=== PATIENT | male | born 1960 | race Two or more races ===

== ENCOUNTER 2018-01-12 12:28 | Emergency (ER) | payer OTHER ==
[2018-01-12 13:14] VITALS: BP 141/86
--- NOTE | 2018-01-12 13:32 | UC ---
UC General HPI - HPI Summary HPI Summary: Patient developed a nonblanching rash on both lower extremities about a month ago. Today he now has a similar non-blanching rash on his left forearm , as well, some rash extending up past his knees onto his thighs. - History of Current Complaint Chief Complaint: UCSkin Stated Complaint: RASH Time Seen by Provider: 01/12/18 13:08 Hx Obtained From: Patient Onset/Duration: Gradual Onset, Lasting Weeks - 4, Worse Since - today Timing: Constant Current Severity: None Pain Intensity: 0 - Allergy/Home Medications Allergies/Adverse Reactions: Allergies Allergy/AdvReac Type Severity Reaction Status Date / Time seasonal, grass & weeds Allergy Eyes Uncoded 01/12/18 13:14 Itchy/Swollen/Red/Watery Home Medications: Home Medications Adalimumab [Humira] 1 dose SUBCUT SEE INSTRUCTIONS 01/12/18 [History Confirmed 01/12/18] PMH/Surg Hx/FS Hx/Imm Hx - Additional Past Medical History Additional PMH: Psoriatic arthritis Previously Healthy: No - Surgical History Surgical History: Yes Surgery Procedure, Year, and Place: hernia repair - Family History Known Family History: Positive: None - Social History Occupation: Employed Full-time Lives: With Family Alcohol Use: Rare Substance Use Type: None Smoking Status (MU): Never Smoked Tobacco Review of Systems Constitutional: Negative Skin: Rash Eyes: Negative ENT: Negative Respiratory: Negative Cardiovascular: Negative Gastrointestinal: Negative Genitourinary: Negative Motor: Negative Neurovascular: Negative Musculoskeletal: Negative Neurological: Negative Psychological: Negative Is Patient Immunocompromised?: No All Other Systems Reviewed And Are Negative: Yes Physical Exam Triage Information Reviewed: Yes Appearance: Well-Appearing, No Pain Distress, Well-Nourished Vital Signs: Initial Vital Signs Temp 97.9 F 01/12/18 13:07 Pulse 74 01/12/18 13:07 Resp 14 01/12/18 13:07 BP 141/86 01/12/18 13:07 Pulse Ox 99 01/12/18 13:07 Vital Signs Reviewed: Yes Eye Exam: Normal Eyes: Positive: Conjunctiva Clear ENT Exam: Normal ENT: Positive: Normal ENT inspection, Hearing grossly normal. Negative: Trismus , Muffled voice, Hoarse voice Neck exam: Normal Neck: Positive: Supple, Nontender, No Lymphadenopathy Respiratory Exam: Normal Respiratory: Positive: No respiratory distress, No accessory muscle use Cardiovascular Exam: Normal Cardiovascular: Positive: RRR, Pulses Normal, Brisk Capillary Refill Musculoskeletal Exam: Normal Musculoskeletal: Positive: Strength Intact, ROM Intact, No Edema Neurological Exam: Normal Neurological: Positive: Alert Psychological Exam: Normal Skin: Positive: Other - no blanching macular raSH BOTH LEGS AND LEFT FOREARM Course/Dx - Course Course Of Treatment: Discharge patient from urgent care and have him go directly to the [facility] for further evaluation - Differential Dx - Multi-Symptom Provider Diagnoses: Rash both lower extremities left forearm - Physician Notifications Time Discussed With Above Provider: 13:35 - jessie multani Discharge - Sign-Out/Discharge Documenting (check all that apply): Discharge/Admit/Transfer - Discharge Plan Condition: Stable Disposition: HOME Patient Education Materials: Hypertension (ED) Referrals: Milly Wagner MD [Primary Care Provider] - Additional Instructions: Laboratory discharge from the urgent care or go directly over to the [facility] emergency department. - Billing Disposition and Condition Condition: STABLE Disposition: HOME
== END 2018-01-12 13:39 | disposition home or self-care (01) ==
LOC: UCCORT 12:28
DX: R21 Rash and other nonspecific skin eruption (principal); L40.50 Arthropathic psoriasis, unspecified
CPT/HCPCS: 99212; G0463

== ENCOUNTER 2018-02-15 11:58 | Emergency (ER) | payer OTHER ==
[2018-02-15 13:16] VITALS: BP 136/75
[2018-02-15] MEDS ORDERED: Albuterol HFA INHALER* 8 gm MDI INH ONE (13:45)
[2018-02-15] MEDS ORDERED: predniSONE TAB* 20 MG PO ONE (13:46)
--- NOTE | 2018-02-15 13:50 | UC ---
Respiratory Complaint HPI - HPI Summary HPI Summary: Patient is a 57-year-old male with a one-week history of nasal congestion and postnasal drip. This has progressed to a productive cough with chest tightness and wheezing. The patient has been treated for bronchospasm in the past but denies a diagnosis of asthma. Is having history of pneumonia. His has not been feverish with this. The patient has a history of psoriatic arthritis for which she is taking Humira. He denies any chest pain or shortness of breath. His was recently treated for bronchitis. - History of Current Complaint Chief Complaint: UCRespiratory Stated Complaint: THROAT,CONGESTION Time Seen by Provider: 02/15/18 13:36 Hx Obtained From: Patient Onset/Duration: Gradual Onset, Lasting Days, Worse Since - past few days Timing: Constant Severity Initially: Mild Severity Currently: Moderate Pain Intensity: 3 Pain Scale Used: 0-10 Numeric Character: Cough: Productive Aggravating Factors: Nothing Associated Signs And Symptoms: Positive: Wheezing, Nasal Congestion, Sinus Discomfort - Allergies/Home Medications Allergies/Adverse Reactions: Allergies Allergy/AdvReac Type Severity Reaction Status Date / Time No Known Allergies Allergy Verified 02/15/18 13:17 Home Medications: Home Medications Acetaminophen [APAP] 325 mg PO ONCE PRN 02/15/18 [History Confirmed 02/15/18] Guaifenesin/Dextromethorphan [Mucinex Dm Maximum Streng 60-1200 mg] 2 tab PO DAILY PRN 02/15/18 [History Confirmed 02/15/18] PMH/Surg Hx/FS Hx/Imm Hx Previously Healthy: Yes - psoriatic arthritis Respiratory History: Bronchitis, Pneumonia - Surgical History Surgical History: Yes Surgery Procedure, Year, and Place: hernia repair - Family History Known Family History: Positive: Hypertension - Social History Alcohol Use: Rare Substance Use Type: None Smoking Status (MU): Never Smoked Tobacco Review of Systems Constitutional: Negative Skin: Negative Eyes: Negative ENT: Nasal Discharge, Sinus Congestion, Sinus Pain/Tenderness Respiratory: Cough Cardiovascular: Negative Gastrointestinal: Negative Genitourinary: Negative Motor: Negative Neurovascular: Negative Musculoskeletal: Negative Neurological: Negative Psychological: Negative Is Patient Immunocompromised?: No All Other Systems Reviewed And Are Negative: Yes Physical Exam Triage Information Reviewed: Yes Appearance: Well-Appearing, No Pain Distress, Well-Nourished Vital Signs: Initial Vital Signs Temp 98.2 F 02/15/18 13:09 Pulse 62 06/30/18 13:09 Resp 16 02/15/18 13:09 BP 136/75 02/15/18 13:09 Pulse Ox 100 02/15/18 13:09 Vital Signs Reviewed: Yes Eyes: Positive: Conjunctiva Clear ENT: Positive: Hearing grossly normal, Nasal congestion, TMs normal, Sinus tenderness - very slight, Uvula midline. Negative: Nasal drainage, Tonsillar swelling, Tonsillar exudate, Trismus, Muffled voice, Hoarse voice, Dental tenderness Neck: Positive: Supple, Nontender, No Lymphadenopathy Respiratory: Positive: Normal breath sounds, No respiratory distress, No accessory muscle use, Wheezing - with forced expiration Cardiovascular: Positive: RRR, No Murmur Musculoskeletal: Positive: ROM Intact, No Edema Neurological: Positive: Alert Psychological Exam: Normal Skin Exam: Normal UC Diagnostic Evaluation - Laboratory O2 Sat by Pulse Oximetry: 100 - normal/not hypoxic Respiratory Course/Dx - Differential Dx/Diagnosis Provider Diagnoses: acute bronchitis with bronchospam. allergic rhinitis Discharge - Sign-Out/Discharge Documenting (check all that apply): Discharge/Admit/Transfer - Discharge Plan Condition: Stable Disposition: HOME Prescriptions: Amoxicillin PO (*) [Amoxicillin 875 MG (*)] 875 mg PO BID #20 tab Fluticasone NASAL SPRAY 50MCG* [Flonase NASAL SPRAY 50MCG*] 2 spray BOTH NARES BID #1 btl predniSONE [Deltasone 20 MG TAB] 40 mg PO DAILY #8 tab Patient Education Materials: Acute Bronchitis (ED) Referrals: Milly Wagner MD [Primary Care Provider] - 3 Days (if not better) Additional Instructions: use inhaler as directed recheck for new or worsening symptoms - Billing Disposition and Condition Condition: STABLE Disposition: Home
== END 2018-02-15 14:13 | disposition home or self-care (01) ==
LOC: UCCORT 11:58
DX: J20.9 Acute bronchitis, unspecified (principal); J30.9 Allergic rhinitis, unspecified
CPT/HCPCS: 99212; A9270-GY; G0463; J7512

== ENCOUNTER 2018-02-19 08:13 | Emergency (ER) | payer OTHER ==
[2018-02-19 08:38] VITALS: BP 123/82
--- NOTE | 2018-02-19 09:19 | UC ---
Throat Pain/Nasal Edward HPI - HPI Summary HPI Summary: Currently being treated with amoxicillin for bronchitis, along with deltasone and flonase. Has had a small abraded area of skin lateral to the nose on the left cheek for a week. For the past 5 days has had increasing swelling of the nose, with erythema and tenderness. Increased infraorbital swelling of the right eye, without pain with eye movements, diplopia. Has a mild headache. Last took Humira 2 weeks ago --on hold due to infection. - History of Current Complaint Chief Complaint: UCRespiratory Stated Complaint: NOSE SWELLING/PUFFY EYES Time Seen by Provider: 02/19/18 09:07 Hx Obtained From: Patient Onset/Duration: Gradual Onset, Lasting Days Severity: Moderate Pain Intensity: 2 Cough: Nonproductive Associated Signs & Symptoms: Positive: Other - mild nasal congestion, no bleeding or discharge. - Epiglottits Risk Factors Epiglottis Risk Factors: Negative - Allergies/Home Medications Allergies/Adverse Reactions: Allergies Allergy/AdvReac Type Severity Reaction Status Date / Time No Known Allergies Allergy Verified 02/19/18 08:38 PMH/Surg Hx/FS Hx/Imm Hx - Additional Past Medical History Additional PMH: psoriasis, on Humira. Previously Healthy: Yes - Surgical History Surgical History: Yes Surgery Procedure, Year, and Place: hernia repair - Family History Known Family History: Positive: Cardiac Disease - mother, Hypertension, Other - father has CA prostate - Social History Occupation: Employed Full-time - design engineering manager Lives: With Family Alcohol Use: Rare Substance Use Type: None Smoking Status (MU): Never Smoked Tobacco Review of Systems Eyes: Other - infraorbital swelling only Respiratory: Cough - has improved since beginning use of amoxicillin and steroid Is Patient Immunocompromised?: Yes - takes Humira, assume some immune suppression All Other Systems Reviewed And Are Negative: Yes Physical Exam Triage Information Reviewed: Yes Appearance: Well-Appearing - alert, visible nose swelling, but otherwise looks well, Pain Distress - mild Vital Signs: Initial Vital Signs Temp 98.1 F 02/19/18 08:30 Pulse 74 02/19/18 08:30 Resp 18 02/19/18 08:30 BP 123/82 02/19/18 08:30 Pulse Ox 100 02/19/18 08:30 Eye Exam: Other - normal eom, AMNOJ without photophobia. Eyes: Positive: Conjunctiva Clear ENT Exam: Other - swelling of nose to the right side with mild induration, erythema and tenderness, about 6 cm area. Irregular 1 cm abrasion medial left cheek. No discharge, light crust. Nasal passages boggy, but no visible drainage or abscess. ENT: Positive: Pharynx normal, TMs normal, Other - no swelling of the philtrum Dental Exam: Normal Neck exam: Normal Respiratory: Positive: Lungs clear, Normal breath sounds Cardiovascular: Positive: RRR, No Murmur Musculoskeletal Exam: Normal Neurological: Positive: Alert, Muscle Tone Normal Skin Exam: Other - erythema and induration of the nose as above Throat Pain/Nasal Course/Dx - Course Course Of Treatment: cephalexin for cellulitis with close monitoring; to ER if progresses. - Differential Dx/Diagnosis Differential Diagnosis/HQI/PQRI: Other - cellulitis, lindsay-orbital cellulitis Provider Diagnoses: cellulitis nose. Discharge - Sign-Out/Discharge Documenting (check all that apply): Discharge/Admit/Transfer - Discharge Plan Condition: Stable Disposition: HOME Prescriptions: Cephalexin CAP* [Keflex 500 CAP*] 500 mg PO QID #28 cap Patient Education Materials: Cellulitis (ED) Referrals: Milly Wagner MD [Primary Care Provider] - Additional Instructions: Begin use of cephalexin 500mg 4 times per day for 7 days. If you have significant increase in swelling around the eyes, pain with eye movement, increasing fever or pain, please proceed to the emergency room as you might need iv antibiotics. STOP amoxicillin. Complete steroid course. Use tylenol or ibuprofen as needed for pain. - Billing Disposition and Condition Condition: STABLE Disposition: Home
== END 2018-02-19 09:44 | disposition home or self-care (01) ==
LOC: UCCORT 08:13
DX: J34.0 Abscess, furuncle and carbuncle of nose (principal); Z79.2 Long term (current) use of antibiotics; L40.9 Psoriasis, unspecified
CPT/HCPCS: 99212; G0463

== ENCOUNTER 2018-05-19 17:00 | Emergency (ER) | payer OTHER ==
--- OUTSIDE RECORDS SUMMARY | 2018-05-19 19:00 | XMS REPORT ---
:1960 External Reference #:[id number] Author Organization [facility] Address [address], [address] [place] [address] Phone [phone] Care Team Providers Name Role Phone Milly Wagner MD Care Team Information Studio Data Analyst Unavailable Milly Wagner MD Primary Care Physician Unavailable Payers Type Date Identification Numbers Payment Provider Subscriber Commercial Policy Number: [id number] [facility] Abhay Flores Group Number: [id number] [address] [address] PayID: [id number] [place] [address] Problems Description No Information Family History Date Family Member(s) Problem(s) Comments Father CAD Father Prostate Cancer Father Oral Cancer First Sister Breast Cancer Social History Type Date Description Comments Marital Status Lives With Family Occupation Currently Working Cigarette Use Never Smoked Cigarettes ETOH Use Occasionally consumes alcohol Smoking Patient has never smoked Recreational Drug Use Never Used Drugs Daily Caffeine Consumes on average 2 cups of regular coffee per day Exercise Type/Frequency Exercises regularly Allergies, Adverse Reactions, Alerts Date Description Reaction Status Severity Comments 09/11/2017 NKDA active Medications Medication Date Status Form Strength Qnty SIG Indications Ordering Provider Humira Active PSKT 40mg/0.8ML 1 injection Unknown 000 every 2 weeks Methotrexate Active Tablets 2.5mg 4 tabs by Unknown 000 mouth every week No Active Hx Unknown Medications 018 Vital Signs Date Vital Result Comment 05/14/2018 BP Systolic Sitting Right Arm 134 mmHg BP Diastolic Sitting Right Arm 72 mmHg Heart Rate 60 /min Respiratory Rate 16 /min Height 72 inches 6'0" Weight 199.00 lb BMI (Body Mass Index) 27.0 kg/m2 BSA (Body Surface Area) 2.13 m2 Lutz body weight in kilograms 81 O2 % BldC Oximetry 99 % Room air 11/11/2017 BP Systolic Sitting Right Arm 138 mmHg BP Diastolic Sitting Right Arm 80 mmHg Heart Rate 75 /min Respiratory Rate 18 /min Height 72 inches 6'0" Weight 200.00 lb BMI (Body Mass Index) 27.1 kg/m2 BSA (Body Surface Area) 2.13 m2 Lutz body weight in kilograms 81 O2 % BldC Oximetry 97 % room air 09/11/2017 BP Systolic Sitting Left Arm 130 mmHg BP Diastolic Sitting Left Arm 74 mmHg Heart Rate 73 /min Respiratory Rate 14 /min Weight 204.00 lb O2 % BldC Oximetry 98 % Results Test Date Test Result H/L Range Note Aot Request 06/12/2017 Aot Request (SEE NOTE) 1, 2 Tests to be added: Pls work up Yeas <SEE NOTE> 1, 3 Instructions: From sputum Cult <SEE NOTE> 1, 4 Continuous Oximetry 06/12/2017 Oximetry 96 % 93-98 1 Fio2 21 21-100 1 O2l/Min 0 L/min 1 Heart Rate 99 BPM 1 Patient Status AMBULATING 1 Continuous Oximetry 06/12/2017 Oximetry 98 % 93-98 1 Fio2 21 21-100 1 O2l/Min 0 L/min 1 Heart Rate 97 BPM 1 Patient Status RESTING 1 Patient Position SITTING UP IN BE <SEE NOTE> 1, 5 CBS W/Automated Diff 06/11/2017 White Blood Count 5.7 K/uL 3.4-10.5 1 Red Blood Count 3.67 M/uL Low 4.20-5.80 1 Hemoglobin 11.7 gm/dL Low 12.8-17.0 1 Hematocrit 33.8 % Low 38.0-48.0 1 Mean Cell Volume 92.1 fl 80.0-96.0 1 Mean Corpuscular HGB 31.9 pg 27.0-33.0 1 Mean Corpuscular HGB Conc 34.6 g/dL 31.7-36.0 1 Platelet Count 188 K/uL 150-400 1 Red Cell Distri Width SD 45.8 fl 36-51 1 Red Cell Distri Width %CV 14.1 % 11.6-15.8 1 Mean Platelet Volume 12.3 fL High 6.6-10.6 1 Neut% 61.1 % 33.0-73.0 1 Lymph % 31.5 % 20.0-42.0 1 Bladen % 4.9 % 0.0-10.0 1 Eo% 2.1 % 0.0-6.6 1 Bas% 0.4 % 0.0-1.1 1 Neut# 3.47 K/uL 1.8-7.0 1 Lymph # 1.79 K/uL 1.0-4.0 1 Bladen # 0.28 K/uL 0.0-0.8 1 Eos # 0.12 K/uL 0.0-0.5 1 Baso # 0.02 K/uL 0.0-0.1 1 CBS W/Automated Diff 06/10/2017 White Blood Count 5.6 K/uL 3.4-10.5 1 Red Blood Count 3.44 M/uL Low 4.20-5.80 1 Hemoglobin 11.0 gm/dL Low 12.8-17.0 1 Hematocrit 31.3 % Low 38.0-48.0 1 Mean Cell Volume 91.0 fl 80.0-96.0 1 Mean Corpuscular HGB 32.0 pg 27.0-33.0 1 Mean Corpuscular HGB Conc 35.1 g/dL 31.7-36.0 1 Platelet Count 158 K/uL 150-400 1 Red Cell Distri Width SD 44.0 fl 36-51 1 Red Cell Distri Width %CV 13.9 % 11.6-15.8 1 Mean Platelet Volume 10.1 fL 6.6-10.6 1 Neut% 71.0 % 33.0-73.0 1 Lymph % 20.4 % 20.0-42.0 1 Bladen % 6.8 % 0.0-10.0 1 Eo% 1.6 % 0.0-6.6 1 Bas% 0.2 % 0.0-1.1 1 Neut# 3.98 K/uL 1.8-7.0 1 Lymph # 1.14 K/uL 1.0-4.0 1 Bladen # 0.38 K/uL 0.0-0.8 1 Eos # 0.09 K/uL 0.0-0.5 1 Baso # 0.01 K/uL 0.0-0.1 1 Laboratory test finding 06/09/2017 Troponin-I < 0.015 ng/mL 1, 6 Basic Metabolic Panel 06/09/2017 Glucose 109 mg/dL High 74-106 1 BUN 14 mg/dL 7-18 1 Creatinine 1.0 mg/dL 0.6-1.3 1 Glom Filtration Rate, Estimate >60 mL/min >60 1 If >60 mL/min >60 1, 7 BUN/Creat 14.0 ratio 1 Sodium 140 mmol/L 136-145 1 Potassium 3.6 mmol/L 3.5-5.1 1 Chloride 110 mmol/L High 98-107 1 Carbon Dioxide 22 mmol/L 21-32 1 Anion Gap 8 mEq/L 8-16 1 Calcium 8.2 mg/dL Low 8.5-10.1 1 CBS W/Automated Diff 06/09/2017 White Blood Count 7.8 K/uL 3.4-10.5 1 Red Blood Count 3.59 M/uL Low 4.20-5.80 1 Hemoglobin 11.3 gm/dL Low 12.8-17.0 1 Hematocrit 33.1 % Low 38.0-48.0 1 Mean Cell Volume 92.2 fl 80.0-96.0 1 Mean Corpuscular HGB 31.5 pg 27.0-33.0 1 Mean Corpuscular HGB Conc 34.1 g/dL 31.7-36.0 1 Platelet Count 155 K/uL 150-400 1 Red Cell Distri Width SD 45.1 fl 36-51 1 Red Cell Distri Width %CV 14.0 % 11.6-15.8 1 Mean Platelet Volume 11.1 fL High 6.6-10.6 1 Neut% 76.4 % High 33.0-73.0 1 Lymph % 15.6 % Low 20.0-42.0 1 Bladen % 7.6 % 0.0-10.0 1 Eo% 0.1 % 0.0-6.6 1 Bas% 0.3 % 0.0-1.1 1 Neut# 5.97 K/uL 1.8-7.0 1 Lymph # 1.22 K/uL 1.0-4.0 1 Bladen # 0.59 K/uL 0.0-0.8 1 Eos # 0.01 K/uL 0.0-0.5 1 Baso # 0.02 K/uL 0.0-0.1 1 Aot Request 06/09/2017 Aot Request Test(s) added 1, 8 Tests to be added: troponin 1 Respiratory Culture W/Gram St 06/09/2017 Gram Stain >10 SQUAMOUS EPI <SEE 1, 9 NOTE> Gram Stain <25 WBC/LPF 1 Gram Stain RARE GRAM POSITI <SEE NOTE> 1, 10 Gram Stain RARE GRAM NEGATI <SEE NOTE> 1, 11 Respiratory Culture YEAST LIKE ORGAN <SEE NOTE> 1, 12 Quantity MANY 1 Laboratory test 06/08/2017 Legionella Urinary POSITIVE Negative 1, 13 finding Antigen Respiratory Culture 06/08/2017 Gram Stain <10 SQUAMOUS EPI 1, 14 W/Gram St <SEE NOTE> Gram Stain <25 WBC/LPF 1 Gram Stain RARE GRAM POSITI <SEE NOTE> 1, 15 Gram Stain RARE GRAM NEGATI <SEE NOTE> 1, 16 Gram Stain RARE GRAM POS BA <SEE NOTE> 1, 17 Respiratory Culture YEAST LIKE ORGAN <SEE NOTE> 1, 18 Quantity MANY 1 Legionella Culture 06/08/2017 Legionella Culture No Legionella sp 1, 19 <SEE NOTE> Lactic Acid 06/08/2017 Lactic Acid 1.9 mmol/L 0.4-1.9 1 Lab Reflex >2.0 for Sepsis? Y 1 Urine Culture 06/08/2017 Urine Culture NO GROWTH: FINAL <SEE NOTE> 1, 20 Blood Culture 06/08/2017 Blood Culture Aerobic NO GROWTH: FINAL <SEE NOTE> , Blood Culture Anaerobic NO GROWTH: FINAL <SEE NOTE> , 22 Blood Culture 06/08/2017 Blood Culture Aerobic NO GROWTH: FINAL <SEE NOTE> , 23 Blood Culture Anaerobic NO GROWTH: FINAL <SEE NOTE> 1, 24 1 PNEUMONIA 2 YEAST WORK UP Tests: Pls work up Yeast like organisms Instructions: From sputum Culture: 06/08/2017. Fungal cx with ID Sensit 3 Pls work up Yeast like organisms 4 From sputum Culture: 06/08/2017. Fungal cx with ID Sensit 5 SITTING UP IN BED 6 0.0 - 0.045 ng/mL: Normal 0.046 - 0.5 ng/mL: Suggestive 0.6 - 1.5 ng/mL: Consistent 7 Note: Persistent reduction for 3 months or more in an eGFR <60 mL/min/1.73 m2 defines CKD. Patients with eGFR values >/=60 mL/min/1.73 m2 may also have CKD if evidence of persistent proteinuria is present. The original MDRD equation for estimated GFR is not valid for patients less than 18 years of age. Additional information may be found at www.kdoqi.org. 8 Tests: troponin Instructions: 9 >10 SQUAMOUS EPITHELIAL CELLS/LPF 10 RARE GRAM POSITIVE COCCI 11 RARE GRAM NEGATIVE BACILLI 12 YEAST LIKE ORGANISM 13 Presumptive positive for the presence of L. pneumophila serogroup 1 antigen in urine, suggesting current or past infection. 14 <10 SQUAMOUS EPITHELIAL CELLS/LPF 15 RARE GRAM POSITIVE COCCI 16 RARE GRAM NEGATIVE BACILLI 17 RARE GRAM POS BACILLI SUGGESTIVE OF DIPTHEROIDS 18 YEAST LIKE ORGANISM 19 No Legionella species isolated. Performed at: RN - [facility] [address] [id number] Perlite Grinder: Jasmina Erazo MD, Phone: [phone] 20 NO GROWTH: FINAL REPORT 21 NO GROWTH: FINAL REPORT 22 NO GROWTH: FINAL REPORT 23 NO GROWTH: FINAL REPORT 24 NO GROWTH: FINAL REPORT Procedures Date CPT Code Description Status 09/19/2017 39804 Bronchospasm Provocation Evaluation Multi Spirometric Completed Determinati 09/19/2017 24391 Spirometry Completed 06/09/2017 71125 EKG Interpretation And Report Only Completed Encounters Type Date Location Provider CPT E/M Dx Office Visit 11/11/2017 2:45p [place] [id number] J18.9 R06.02 Office Visit 09/11/2017 2:[place] [address] J18.9 R59.0 R06.02 Plan of Care 05/14/2018 - Ever Dickson MDR06.02 Shortness of breathComments:His breating is much better. Follow up as needed.
[2018-05-19 19:18] VITALS: BP 145/82
[2018-05-19] MEDS ORDERED: Sulfamethox/Trimethoprim DS 800/160* TAB PO ONE (19:38)
[2018-05-19] MEDS ORDERED: cefTRIAXone VIAL(*) 1,000 MG VIAL IM ONE (19:38)
[2018-05-19] MEDS ORDERED: Lidocaine 1%* 5 ML VIAL ONE (19:44)
--- NOTE | 2018-05-19 19:54 | UC ---
Skin Complaint HPI - HPI Summary HPI Summary: pt presents to the for evaluation of his nose. he states he has had cellulitis to his nose before. he took antibiotics and it went away. he did not take the abx to completion so he had a few keflex pills left over. he took his first pills today. he states that there is no drainage but it is tender to palpation. he denies any other cellulitic areas to his body. he denies any other symptoms including n/v/fever/chills/headaches. - History of Current Complaint Chief Complaint: UCSkin Stated Complaint: SKIN COMPLAINT Hx Obtained From: Patient Onset/Duration: Sudden Onset Skin Exposure Onset/Duration: Days Ago Timing: Constant Onset Severity: Mild Current Severity: Mild Pain Intensity: 1 Location: Face - nose Aggravating Factor(s): Touch Associated Signs & Symptoms: Negative: Nausea, Vomiting, Numbness, Thirst, Diaphoresis, Weakness, Chills, Cough, Wheezing, Chest Pain, Syncope, Drainage Similar Episode/Dx as: in january 2018 - Allergy/Home Medications Allergies/Adverse Reactions: Allergies Allergy/AdvReac Type Severity Reaction Status Date / Time No Known Allergies Allergy Verified 05/19/18 19:03 Home Medications: Home Medications Methotrexate TAB* 4 tab PO WEEKLY 05/19/18 [History Confirmed 05/19/18] Review of Systems Constitutional: Negative Skin: Rash - to nose Eyes: Negative ENT: Negative Respiratory: Negative Cardiovascular: Negative Gastrointestinal: Negative Motor: Negative Neurovascular: Negative Musculoskeletal: Negative Neurological: Negative Psychological: Negative All Other Systems Reviewed And Are Negative: No PMH/Surg Hx/FS Hx/Imm Hx Previously Healthy: Yes Cardiovascular History: Hypertension - Surgical History Surgical History: Yes Surgery Procedure, Year, and Place: hernia repair - Family History Known Family History: Positive: None, Cardiac Disease - mother, Hypertension, Other - father has CA prostate - Social History Alcohol Use: Occasionally Substance Use Type: None Smoking Status (MU): Never Smoked Tobacco Physical Exam Triage Information Reviewed: Yes Appearance: Well-Appearing, No Pain Distress, Well-Nourished Vital Signs: Initial Vital Signs Temp 97.8 F 05/19/18 19:08 Pulse 66 05/19/18 19:08 Resp 18 05/19/18 19:08 BP 145/82 05/19/18 19:08 Pulse Ox 100 05/19/18 19:08 Vital Signs Reviewed: Yes Eye Exam: Normal Eyes: Positive: Conjunctiva Clear ENT Exam: Normal Dental Exam: Normal Neck exam: Normal Respiratory Exam: Normal Respiratory: Positive: Chest non-tender Cardiovascular Exam: Normal Abdominal Exam: Normal Abdomen Description: Positive: Nontender, Soft Bowel Sounds: Positive: Present Musculoskeletal Exam: Normal Musculoskeletal: Positive: Strength Intact Neurological Exam: Normal Neurological: Positive: Alert Psychological Exam: Normal Skin Exam: Other - erythema and swelling to the distal 1/3 of his nose. Course/Dx - Course Course Of Treatment: pt given im rocephin and first dose of bactrim. pt encouraged to f/u with pcp this week. pt tolerated abx well without complications. - Differential Diagnoses - Skin Complaint Differential Diagnoses: Cellulitis - Diagnoses Provider Diagnoses: cellulitis Discharge - Sign-Out/Discharge Documenting (check all that apply): Patient Departure All imaging exams completed and their final reports reviewed: No Studies - Discharge Plan Condition: Stable Disposition: HOME Prescriptions: Sulfamethox/Trimethoprim DS* [Bactrim DS 800/160 TAB*] 1 tab PO BID #20 tab Patient Education Materials: Cellulitis (ED) Referrals: Milly Wagner MD [Primary Care Provider] - Additional Instructions: take tylenol and motrin for pain or discomfort. take the bactrim as instructed. return if worse or any new symptoms. Follow up with your doctor this week. also, get your tetanus shot at your doctor's office - Billing Disposition and Condition Condition: STABLE Disposition: Home
== END 2018-05-19 20:16 | disposition home or self-care (01) ==
LOC: UCCORT 17:00
DX: J34.0 Abscess, furuncle and carbuncle of nose (principal)
CPT/HCPCS: 96372; 99212; A9270-GY; G0463; J0696